=== PATIENT | female | born 1970 | race Caucasian/White ===

== ENCOUNTER 2024-10-20 12:06 | Inpatient (IN) | payer OTHER ==
[~2024-10-20] VITALS: Ht 167.6 cm; Wt 186.9 kg
[2024-10-20] VITALS (20 sets, daily range): BP systolic 81–145; BP diastolic 48–98; TEMP 97.6; O2SAT 93–100
[2024-10-20] MEDS: IV NORMAL SALINE 1000 ML BAG IV ONE (12:26)
[2024-10-20] MEDS ORDERED: CEFTRIAXONE /D5W 50ML IVPB **ER PYXIS IV ONE (12:27)
[2024-10-20] MEDS ORDERED: AZITHROMYCIN 500MG/ D5W 250ML IVPB **ER PYXIS ONLY IV ONE (12:27)
[2024-10-20 12:47] LABS: PLATELET COUNT (AUTO) 232 K/uL (179-408); RED BLOOD CELL COUNT(AUTO) 3.61 MIL/uL (3.63-4.92); RED CELL DISTRIBUTION WIDTH 16.3 % (12.3-17.7); WHITE BLOOD COUNT (AUTO) 10.1 K/uL (3.8-11.8)
[2024-10-20] MEDS: AZITHROMYCIN IV 500 MG in IV DEXTROSE 5% 250 ML IV ONE (12:54)
[2024-10-20 13:05] LABS: ASPARTATE AMINOTRANSFERASE 32 U/L (15-37); CREATININE 3.6 mg/dL (0.6-1.3); SODIUM SERUM 138 mmol/L (136-145); TOTAL PROTEIN, SERUM 7.1 g/dL (6.4-8.2); UREA NITROGEN, BLOOD 64 mg/dL (7-18)
[2024-10-20] MEDS ORDERED: ALBUTEROL SULFATE 2.5 MG/3 ML NEBU ONE (13:30)
[2024-10-20] MEDS ORDERED: FUROSEMIDE 40 MG/4 ML VIAL ONE (13:32)
[2024-10-20] MEDS ORDERED: INSULIN REGULAR, HUMAN 1000 UNIT/10 ML VIAL ONE (13:33)
[2024-10-20] MEDS ORDERED: SODIUM BICARBONATE 8.4% 50 MEQ/50 ML DISP.SYRIN IV ONE (13:33)
[2024-10-20] MEDS ORDERED: DEXTROSE 50% 50 ML DISP.SYRIN ONE (13:33)
[2024-10-20] MEDS: DEXTROSE 50% 50 ML DISP.SYRIN IV ONE (13:35)
[2024-10-20] MEDS: INSULIN REGULAR, HUMAN 1000 UNIT/10 ML VIAL IV ONE (13:39)
[2024-10-20] MEDS: SODIUM BICARBONATE 8.4% 50 MEQ/50 ML DISP.SYRIN IV ONE (13:41)
[2024-10-20] MEDS: ALBUTEROL SULFATE 2.5 MG/3 ML NEBU NEB ONE (13:42)
[2024-10-20] MEDS: FUROSEMIDE 20 MG/2 ML VIAL IVP ONE (13:55)
[2024-10-20 14:17] LABS: *BILIRUBIN,URIN 1+ (NEGATIVE); *BLOOD, URINE NEGATIVE (NEGATIVE); *CLARITY,URINE SLIGHTLY CLOUDY (CLEAR); *COLOR,URINE YELLOW (YELLOW); *KETONES,URINE TRACE (NEGATIVE); *PROTEIN,URINE 2+ (NEGATIVE); *UROBILINOGEN,URINE 0.2 E.U./dl (NORMAL); LEUKOCYTE ESTERASE ,URINE NEGATIVE (NEGATIVE); NITRITE, URINE NEGATIVE (NEGATIVE); UGLUCOSE NEGATIVE (NEGATIVE)
[2024-10-20 14:23] LABS: SQUAMOUS EPITHELIAL CELL,UR MODERATE /HPF (NONE SEEN); URINE AMORPHOUS URATE FEW /HPF
[2024-10-20] MEDS ORDERED: ONDANSETRON 4 MG/2 ML VIAL IV PRN (15:00)
[2024-10-20] MEDS: AZITHROMYCIN IV 500 MG in IV DEXTROSE 5% 250 ML IV SCH (15:00)
[2024-10-20] MEDS ORDERED: MAGNESIUM HYDROXIDE 30 ML LIQUID UDC PO PRN (15:00)
[2024-10-20 17:05] LABS: CREATININE 3.8 mg/dL (0.6-1.3); SODIUM SERUM 140.0 mmol/L (136-145); UREA NITROGEN, BLOOD 64.0 mg/dL (7-18)
[2024-10-20] MEDS: NOREPINEPHRINE BITARTRATE 32 MG in IV NORMAL SALINE 218 ML IV PRN (19:54)
[2024-10-20] MEDS: HEPARIN SODIUM,PORCINE 5,000 UNITS/ML VIAL SQ SCH (20:52)
[2024-10-21] VITALS (58 sets, daily range): BP systolic 92–171; BP diastolic 43–93; TEMP 97.4–98.7; O2SAT 83–98
[2024-10-21] MEDS: ACETAMINOPHEN 325 MG TABLET PO PRN (02:22)
[2024-10-21 05:13] LABS: PLATELET COUNT (AUTO) 224 K/uL (179-408); RED BLOOD CELL COUNT(AUTO) 3.67 MIL/uL (3.63-4.92); RED CELL DISTRIBUTION WIDTH 15.5 % (12.3-17.7); WHITE BLOOD COUNT (AUTO) 7.6 K/uL (3.8-11.8)
[2024-10-21 05:26] LABS: CREATININE 3.1 mg/dL (0.6-1.3); SODIUM SERUM 141.0 mmol/L (136-145); UREA NITROGEN, BLOOD 61.0 mg/dL (7-18)
[2024-10-21] MEDS: PANTOPRAZOLE SODIUM 40 MG TABLET.DR PO SCH (08:16)
[2024-10-21] MEDS ORDERED: GABA300C PO (09:35)
[2024-10-21] MEDS ORDERED: ESCI5TAB16 PO (09:35)
[2024-10-21] MEDS ORDERED: DICY20TA11 PO (09:44)
[2024-10-21] MEDS ORDERED: ROPI1TAB6 PO (09:45)
[2024-10-21] MEDS ORDERED: TIZA4TAB5 PO (09:45)
[2024-10-21] MEDS ORDERED: IBUP-76 PO (09:52)
[2024-10-21] MEDS ORDERED: METO25TA6 PO (09:52)
[2024-10-21] MEDS ORDERED: DEXT30DR6 EACHEYE (09:52)
[2024-10-21] MEDS ORDERED: ALBU18HF2 IH (09:52)
[2024-10-21] MEDS ORDERED: POTA-194 PO (09:52)
[2024-10-21] MEDS ORDERED: LEVO175T7 PO (09:52)
[2024-10-21] MEDS ORDERED: ACET-73 PO (09:52)
[2024-10-21] MEDS ORDERED: FLUT1DIS28 IH (09:52)
[2024-10-21] MEDS ORDERED: CIPR-262 PO (09:52)
[2024-10-21] MEDS ORDERED: CLON0.1T PO (09:57)
[2024-10-21] MEDS ORDERED: FOLI1TAB94 PO (09:57)
[2024-10-21] MEDS ORDERED: TRAZ-182 PO (09:57)
[2024-10-21] MEDS ORDERED: THIA100T88 PO (09:57)
[2024-10-21] MEDS ORDERED: MULT-1119 PO (09:57)
[2024-10-21] MEDS ORDERED: LOSA50TA39 PO (09:57)
[2024-10-21] MEDS ORDERED: ONDA4TAB11 PO (09:59)
[2024-10-21] MEDS ORDERED: NOREPINEPHRINE 8MG/NS 250ML 250 ML IV PRN (10:30)
[2024-10-21] MEDS ORDERED: TIZANIDINE HCL 4 MG TABLET PO PRN (10:45)
[2024-10-21] MEDS ORDERED: POLYVINYL ALCOHOL OPHT DROPS 15 ML BOTTLE EACHEYE PRN (10:45)
[2024-10-21] MEDS ORDERED: DICYCLOMINE HCL 20 MG TABLET PO PRN (10:45)
[2024-10-21] MEDS ORDERED: ALBUTEROL SULFATE 8 GM HFA.AER.AD IH PRN (10:45)
[2024-10-21] MEDS ORDERED: TRAZODONE 50 MG TABLET PO PRN (10:45)
[2024-10-21 10:51] LABS: *AMPHETAMINE, URINE NEGATIVE (NEGATIVE); *BARBITURATE, URINE POSITIVE (NEGATIVE); *BENZODIAZEPINE, URINE POSITIVE (NEGATIVE); *CANNABINOID, URINE NEGATIVE (NEGATIVE); *COCCAINE, URINE NEGATIVE (NEGATIVE); *OPIATE, URINE NEGATIVE (NEGATIVE); *PHENCYCLIDINE SCREEN,URINE NEGATIVE (NEGATIVE); FENTANYL, URINE NEGATIVE (NEGATIVE)
[2024-10-21] MEDS: MOMETASONE/FORMOTEROL 8.8 GM HFA.AER.AD IH SCH (12:02)
[2024-10-21] MEDS: AZITHROMYCIN IV 500 MG in IV DEXTROSE 5% 250 ML IV SCH (12:02)
[2024-10-21] MEDS: IPRATROPIUM BROMIDE 0.5 MG/2.5 ML NEBU NEB SCH (13:44)
[2024-10-21] MEDS: LEVALBUTEROL HCL NEB 0.63 MG/3 ML NEBU NEB SCH (13:44)
[2024-10-21] MEDS ORDERED: FLUTICASONE/SALMETEROL 250/50 INHALER IH SCH (17:00)
[2024-10-21] MEDS: METOPROLOL TARTRATE 25 MG TABLET PO SCH (17:04)
[2024-10-21] MEDS: LOSARTAN POTASSIUM 50 MG TABLET PO SCH (17:04)
[2024-10-21 21:01] LABS: PLATELET COUNT (AUTO) 225 K/uL (179-408); RED BLOOD CELL COUNT(AUTO) 3.90 MIL/uL (3.63-4.92); RED CELL DISTRIBUTION WIDTH 15.5 % (12.3-17.7); WHITE BLOOD COUNT (AUTO) 7.8 K/uL (3.8-11.8)
[2024-10-21 21:12] LABS: ASPARTATE AMINOTRANSFERASE 100.0 U/L (15-37); CREATININE 2.1 mg/dL (0.6-1.3); SODIUM SERUM 147.0 mmol/L (136-145); TOTAL PROTEIN, SERUM 7.2 g/dL (6.4-8.2); UREA NITROGEN, BLOOD 43.0 mg/dL (7-18)
[2024-10-22] VITALS (28 sets, daily range): BP systolic 129–183; BP diastolic 68–128; TEMP 97.2–97.7; O2SAT 90–99
[2024-10-22 05:06] LABS: PLATELET COUNT (AUTO) 244 K/uL (179-408); RED BLOOD CELL COUNT(AUTO) 3.99 MIL/uL (3.63-4.92); RED CELL DISTRIBUTION WIDTH 15.6 % (12.3-17.7); WHITE BLOOD COUNT (AUTO) 8.4 K/uL (3.8-11.8)
[2024-10-22 05:32] LABS: ASPARTATE AMINOTRANSFERASE 84.0 U/L (15-37); CREATINE KINASE, TOTAL 2427.0 U/L (26-192); CREATININE 1.7 mg/dL (0.6-1.3); SODIUM SERUM 146.0 mmol/L (136-145); TOTAL PROTEIN, SERUM 7.3 g/dL (6.4-8.2); UREA NITROGEN, BLOOD 35.0 mg/dL (7-18)
[2024-10-22] MEDS: LEVOTHYROXINE SODIUM 175 MCG TABLET PO SCH (06:36)
[2024-10-22] MEDS: ONDANSETRON ODT 4 MG TAB.RAPDIS SL PRN (08:20)
[2024-10-22] MEDS: FOLIC ACID 1 MG TABLET PO SCH (09:46)
[2024-10-22] MEDS: ESCITALOPRAM OXALATE 10 MG TABLET PO SCH (09:46)
[2024-10-22] MEDS: THIAMINE HCL 100 MG TABLET PO SCH (09:48)
[2024-10-22] MEDS: MULTIVIT, IRON, MIN NO. 8, FA TABLET PO SCH (09:48)
[2024-10-22 11:42] LABS: *BILIRUBIN,URIN 1+ (NEGATIVE); *BLOOD, URINE 2+ (NEGATIVE); *CLARITY,URINE CLOUDY (CLEAR); *COLOR,URINE YELLOW (YELLOW); *KETONES,URINE NEGATIVE (NEGATIVE); *PROTEIN,URINE 2+ (NEGATIVE); *UROBILINOGEN,URINE 0.2 E.U./dl (NORMAL); LEUKOCYTE ESTERASE ,URINE NEGATIVE (NEGATIVE); NITRITE, URINE NEGATIVE (NEGATIVE); UGLUCOSE TRACE (NEGATIVE)
[2024-10-22 12:02] LABS: *CREATININE,URINE 210.7 mg/dL (30-125); *SODIUM RNDM,URINE 64.0 mmol/L (40-220); *URINE TOTAL PROTEIN RANDOM 162.2 mg/dL (<150/24HR)
[2024-10-22 12:06] LABS: SQUAMOUS EPITHELIAL CELL,UR FEW /HPF (NONE SEEN)
[2024-10-22] MEDS ORDERED: METOPROLOL TARTRATE 25 MG TABLET PO SCH (12:45)
[2024-10-22] MEDS: METOPROLOL TARTRATE 50 MG TABLET PO SCH (12:53)
[2024-10-23] VITALS (9 sets, daily range): BP systolic 117–144; BP diastolic 56–78; TEMP 97.4–98.2; O2SAT 94–99
[2024-10-23 05:46] LABS: PLATELET COUNT (AUTO) 244 K/uL (179-408); RED BLOOD CELL COUNT(AUTO) 3.86 MIL/uL (3.63-4.92); RED CELL DISTRIBUTION WIDTH 16.0 % (12.3-17.7); WHITE BLOOD COUNT (AUTO) 7.1 K/uL (3.8-11.8)
[2024-10-23 05:55] LABS: CREATININE 1.4 mg/dL (0.6-1.3); SODIUM SERUM 147.0 mmol/L (136-145); UREA NITROGEN, BLOOD 26.0 mg/dL (7-18)
[2024-10-23 07:07] LABS: PTH, INTACT 43 pg/mL (15-65)
[2024-10-23] MEDS: HYDROCODONE/APAP 5-325MG TABLET PO PRN (12:29)
[2024-10-24] VITALS (12 sets, daily range): BP systolic 125–141; BP diastolic 56–65; TEMP 97.8–98.4; O2SAT 95–99
[2024-10-24 06:47] LABS: PLATELET COUNT (AUTO) 238 K/uL (179-408); RED BLOOD CELL COUNT(AUTO) 3.86 MIL/uL (3.63-4.92); RED CELL DISTRIBUTION WIDTH 15.5 % (12.3-17.7); WHITE BLOOD COUNT (AUTO) 7.5 K/uL (3.8-11.8)
[2024-10-24 06:56] LABS: CREATININE 1.0 mg/dL (0.6-1.3); SODIUM SERUM 145.0 mmol/L (136-145); UREA NITROGEN, BLOOD 26.0 mg/dL (7-18)
[2024-10-24] MEDS: ALBUTEROL SULFATE 1.25 MG/3 ML NEBU NEB SCH (21:27)
[2024-10-25] VITALS (13 sets, daily range): BP systolic 112–142; BP diastolic 55–76; TEMP 97.6–97.9; O2SAT 94–99
[2024-10-25 06:57] LABS: PLATELET COUNT (AUTO) 224 K/uL (179-408); RED BLOOD CELL COUNT(AUTO) 4.00 MIL/uL (3.63-4.92); RED CELL DISTRIBUTION WIDTH 15.3 % (12.3-17.7); WHITE BLOOD COUNT (AUTO) 6.9 K/uL (3.8-11.8)
[2024-10-25 07:06] LABS: CREATININE 1.0 mg/dL (0.6-1.3); SODIUM SERUM 145.0 mmol/L (136-145); UREA NITROGEN, BLOOD 25.0 mg/dL (7-18)
[2024-10-26] VITALS (14 sets, daily range): BP systolic 123–158; BP diastolic 49–82; TEMP 97.6–98.5; O2SAT 93–99
[2024-10-26 07:28] LABS: CREATININE 0.8 mg/dL (0.6-1.3); SODIUM SERUM 146.0 mmol/L (136-145); UREA NITROGEN, BLOOD 24.0 mg/dL (7-18)
[2024-10-26] MEDS: POTASSIUM CHLORIDE 20 MEQ TAB.PRT.SR PO ONE (11:04)
[2024-10-27] VITALS (11 sets, daily range): BP systolic 121–146; BP diastolic 58–73; TEMP 97.8–98.4; O2SAT 95–99
[2024-10-27 07:18] LABS: CREATININE 1.0 mg/dL (0.6-1.3); SODIUM SERUM 148.0 mmol/L (136-145); UREA NITROGEN, BLOOD 20.0 mg/dL (7-18)
[2024-10-27] MEDS: POTASSIUM CHLORIDE 20 MEQ TAB.PRT.SR PO ONE (13:01)
[2024-10-28] VITALS (12 sets, daily range): BP systolic 123–147; BP diastolic 60–66; TEMP 97.7–98.3; O2SAT 93–99
[2024-10-28] MEDS: REMEDY ESSENTIAL ZINC PASTE 113 GM TP PRN (08:52)
[2024-10-28] MEDS: POTASSIUM CHLORIDE 20 MEQ TAB.PRT.SR PO ONE (09:50)
[2024-10-28 11:00] LABS: ASPARTATE AMINOTRANSFERASE 12.0 U/L (15-37); TOTAL PROTEIN, SERUM 6.6 g/dL (6.4-8.2)
[2024-10-29 00:31] VITALS: BP 135/63; TEMP 98.4; O2SAT 98
[2024-10-29 04:39] VITALS: BP 142/73; TEMP 98.1; O2SAT 98
[2024-10-29 06:07] LABS: A/G RATIO 0.8 (0.7-1.7); BETA GLOBULIN 1.2 g/dL (0.7-1.3); GLOBULIN, TOTAL 3.7 g/dL (2.2-3.9); M-SPIKE Not Observed g/dL (Not Observed); PROTEIN, TOTAL 6.5 g/dL (6.0-8.5)
[2024-10-29 07:25] VITALS: O2SAT 95
[2024-10-29 07:40] VITALS: O2SAT 99
[2024-10-29 08:00] VITALS: BP 145/66; TEMP 98.4; O2SAT 93
[2024-10-29 12:00] VITALS: BP 123/66; TEMP 97.8; O2SAT 94
== END 2024-10-29 12:50 | disposition home or self-care (01) | DRG 193 ==
LOC: ER 12:06 → CCU 16:46 → TELE3 10-23 09:00
PROVIDERS: ADMIT Student in an Organized Health Care Education/Training Program
PROC: 02HV33Z Insertion of Infusion Device into Superior Vena Cava, Percutaneous Approach (ICD-10-PCS; principal; 2024-10-21)
PROC: 5A09357 Assistance with Respiratory Ventilation, Less than 24 Consecutive Hours, Continuous Positive Airway Pressure (ICD-10-PCS; 2024-10-21)
DX: J15.9 Unspecified bacterial pneumonia (principal); J96.21 Acute and chronic respiratory failure with hypoxia; N17.0 Acute kidney failure with tubular necrosis; J96.22 Acute and chronic respiratory failure with hypercapnia; J44.1 Chronic obstructive pulmonary disease with (acute) exacerbation; Z68.44 Body mass index [BMI] 60.0-69.9, adult; E44.0 Moderate protein-calorie malnutrition; J44.0 Chronic obstructive pulmonary disease with (acute) lower respiratory infection; D68.69 Other thrombophilia; E87.0 Hyperosmolality and hypernatremia; E87.5 Hyperkalemia; E66.01 Morbid (severe) obesity due to excess calories; G47.33 Obstructive sleep apnea (adult) (pediatric); M89.8X9 Other specified disorders of bone, unspecified site; E83.9 Disorder of mineral metabolism, unspecified; Z87.01 Personal history of pneumonia (recurrent); Z88.0 Allergy status to penicillin; Z20.822 Contact with and (suspected) exposure to COVID-19; E03.9 Hypothyroidism, unspecified; I50.9 Heart failure, unspecified; F19.10 Other psychoactive substance abuse, uncomplicated; Z74.09 Other reduced mobility; E88.09 Other disorders of plasma-protein metabolism, not elsewhere classified
CPT/HCPCS: 36415; 36569; 36600; 71045; 82803; 83605; 83735; 83970; 84100; 84155; 84165; 84300; 84443; 84484; 85025; 85730; 87040; 87086; 93307; 94640; 94660; 94760; A4606; A4663; G0378; J0456; J0696; J1644; J1815; J1938; J2919; J3490; J3590; J7040; J7050; J7614; Q0162